=== PATIENT | male | born 1955 | race Caucasian/White ===

== ENCOUNTER 2017-07-22 10:44 | Emergency (ER) | payer OTHER ==
[~2017-07-22] VITALS: Ht 175.3 cm; Wt 91.2 kg
[2017-07-22 10:55] VITALS: Ht 175.3 cm; Wt 91.2 kg
[2017-07-22 11:27] LABS: BASOPHIL % 0.2 % (0-2); PLATELET COUNT 277 x10^3mcL (130-400); RED CELL DISTRIBUTION WIDTH 13.2 % (11.5-14.5)
[2017-07-22 11:29] LABS: CALCIUM 9.3 mg/dL (8.5-10.1); CARBON DIOXIDE 33.6 mmol/L (21-32); CHLORIDE SERUM 103 mmol/L (98-107); CREATININE SERUM 0.9 mg/dL (0.7-1.3); GFR1 > 60 mL/min; GLUCOSE SERUM 78 mg/dL (74-106); POTASSIUM SERUM 4.3 mmol/L (3.5-5.1); SODIUM SERUM 141 mmol/L (136-145)
[2017-07-22 13:58] VITALS: BP 114/70
== END 2017-07-22 13:58 | disposition home or self-care (01) ==
LOC: ED 10:44
PROVIDERS: Emergency Medicine
DX: M79.89 Other specified soft tissue disorders (principal)
CPT/HCPCS: 36415; J1885; Q0092

== ENCOUNTER 2018-05-24 17:35 | Emergency (ER) | payer MEDICAID ==
[~2018-05-24] VITALS: Ht 175.3 cm; Wt 92.1 kg
[2018-05-24 17:42] VITALS: BP 161/67; Ht 175.3 cm; Wt 92.1 kg
== END 2018-05-24 19:42 | disposition left against medical advice (07) ==
LOC: ED 17:35
DX: Z53.21 Procedure and treatment not carried out due to patient leaving prior to being seen by health care provider (principal)